=== PATIENT | female | born 2000 | race Caucasian/White ===

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

== ENCOUNTER 2021-11-22 12:42 | Emergency (ER) | payer SELFPAY ==
[2021-11-23 09:35] LABS: SARS-CoV-2 PCR by NAA DETECTED (NotDetected)
== END 2021-11-22 13:12 | disposition home or self-care (01) ==
LOC: MADERS 12:42
DX: U07.1 COVID-19 (principal); F17.210 Nicotine dependence, cigarettes, uncomplicated
CPT/HCPCS: 99283; U0003; U0005

== ENCOUNTER 2022-09-16 03:28 | Emergency (ER) | payer SELFPAY ==
[2022-09-16 03:46] LABS: #Basophils 0.1 thou/uL (0.0-0.2); #Eosinphils 0.7 thou/uL (0.0-0.7); #Lymphocytes 2.6 thou/uL (1.20-3.40); #Monocytes 0.6 thou/uL (0.11-0.59); #Neutrophils 7.9 thou/uL (1.40-6.50); %Eosinophils 5.7 % (0.0-10.0); %Lymphocytes 21.7 % (21.0-51.0); %Monocytes 4.9 % (0.0-10.0); %Neutrophils 66.7 % (42.0-75.0); Hemoglobin 12.8 g/dL (12.0-16.0); Mean Corpuscular HGB CONC 35.5 g/dL (32.0-36.0); Mean Corpuscular Hemoglobin 31.1 pg (27.0-31.0); Mean Corpuscular Volume 87.7 fl (78.0-98.0); Mean Platelet Volume 6.1 fL (7.4-10.4); Platelet Count 409 thou/uL (130-400); RBC Distribution Width 11.6 % (11.5-14.5); White Blood Cell (WBC) Count 11.8 thou/uL (4.8-10.8)
[2022-09-16 03:56] LABS: Bilirubin Negative (Negative); Blood, Urine Small (Negative); Clarity Clear (Clear); Glucose, Urine (Dipstick) Negative (Negative); Ketone, Urine Negative (Negative); Leukocyte Negative (Negative); Nitrite Negative (Negative); Protein, Urine (Dipstick) Negative (Neg-Trace); Urobilinogen 0.2 mg/dL (Less than 2); pH, Urine 6.5 (5.0-9.0)
[2022-09-16 03:59] LABS: BHCG - Serum Negative (NEGATIVE); Pregs Control Background? CLEAR/WHITE (CLR/WHITE); Pregs Control Bar Appear? YES (CONTROL BAR)
[2022-09-16 04:01] LABS: RBC/HPF 0-3 HPF (0-3); WBC/HPF 0-3 HPF (0-3)
[2022-09-16 04:05] LABS: CO2 Tension (PvCO2) 32.3 mmHg (42.0-51.0); Calcium, Ionized 1.03 mmol/L (1.15-1.33); Chloride 112 mmol/L (98-107); Hemoglobin - Calc 12.9 g/dL (12.0-16.0); Potassium 3.8 mmol/L (3.5-5.1); Sodium 145 mmol/L (138-145); vO2 Saturation-calc 92.1 % (60.0-85.0)
[2022-09-16 04:06] LABS: ALT (SGPT) 12 U/L (8-55); AST (SGOT) 15 U/L (5-34); Alkaline Phosphatase 54 U/L (40-110); Anion Gap 14 mmol/L (10-20); BUN (Urea Nitrogen) 5 mg/dL (7.0-18.7); Bilirubin, Total Less than 0.2 mg/dL (0.2-1.2); Calc. Creatinine Clearance 0 mL/min (70-130); Calcium 8.2 mg/dL (7.8-10.44); Carbon Dioxide 20 mmol/L (22-29); Chloride 112 mmol/L (98-107); Estimated GFR 119; Globulin 2.4 g/dL (2.4-3.5); Glucose 88 mg/dL (70-105); Magnesium 1.8 mg/dL (1.6-2.6); Potassium 3.8 mmol/L (3.5-5.1); Protein, Total 6.4 g/dL (6.0-8.3); Sodium 142 mmol/L (136-145)
[2022-09-16 04:06] LABS: Amphetamine Not Detected (NotDetected); Barbiturates Screen Not Detected (NotDetected); Benzodiazepine Screen Not Detected (NotDetected); Cocaine Metabolite Screen Not Detected (NotDetected); Medtox Control Line Valid? VALID (VALID); Methadone Not Detected (NotDetected); Methamphetamine Not Detected (NotDetected); Opiate Screen Not Detected (NotDetected); Oxycodone Screen Not Detected (NotDetected); Phencyclidine (PCP) Not Detected (NotDetected); THC/Cannabinoid Screen Detected (NotDetected); Tricyclic Screen Not Detected (NotDetected)
[2022-09-16 04:08] LABS: Acetaminophen Less than 10.0 mcg/mL (10.0-30.0); Alcohol 140 mg/dL (Less than 10); Salicylate Less than 8.0 mg/dL (15.0-30.0)
[2022-09-16] MEDS ORDERED: Magnesium 2 GM/50 ML BAG (IN WATER) ONE (05:04)
[2022-09-16] MEDS ORDERED: NS 0.9% w/ 40 MEQ KCL 1,000 ML IV ONE (05:42)
[2022-09-16 07:53] LABS: Base Excess-Venous -3.4 mmol/L (-2.0 to 3.0); Bicarbonate (HCO3v) 23.2 mmol/L (22.0-28.0); CO2 Tension (PvCO2) 46.8 mmHg (42.0-51.0); Calcium, Ionized 1.08 mmol/L (1.15-1.33); Chloride 117 mmol/L (98-107); Hemoglobin - Calc 12.7 g/dL (12.0-16.0); Potassium 4.6 mmol/L (3.5-5.1); Sodium 149 mmol/L (138-145); T. Carbon Dioxide 24.6 mmol/L (22.0-28.0)
[2022-09-16 12:18] LABS: Carbamazepine-Tegretol 3.3 ug/mL (4.0-12.0)
== END 2022-09-16 12:30 | disposition home or self-care (01) ==
LOC: MADERS 03:28
DX: F10.129 Alcohol abuse with intoxication, unspecified (principal); E86.0 Dehydration; F12.929 Cannabis use, unspecified with intoxication, unspecified; J45.909 Unspecified asthma, uncomplicated; F17.210 Nicotine dependence, cigarettes, uncomplicated; Y90.6 Blood alcohol level of 120-199 mg/100 ml; Z79.899 Other long term (current) drug therapy
CPT/HCPCS: 70450; 80053; 80156; 80164; 80178; 80306; 80307; 81003; 81015; 82140; 82330; 82435; 82550; 82803; 83605; 83690; 83735; 84132; 84295; 84703; 85014; 85025; 93005; 96361; 96365; 96366; 96367; J3475; J3480

== ENCOUNTER 2022-10-25 12:19 | Emergency (ER) | payer SELFPAY ==
[2022-10-25 13:16] LABS: Bilirubin Negative (Negative); Blood, Urine Moderate (Negative); Clarity Clear (Clear); Glucose, Urine (Dipstick) Negative (Negative); Ketone, Urine Negative (Negative); Leukocyte Negative (Negative); Nitrite Negative (Negative); Protein, Urine (Dipstick) Negative (Neg-Trace); Specific Gravity, Urine 1.025 (1.005-1.030); Urobilinogen 0.2 mg/dL (Less than 2); pH, Urine 6.5 (5.0-9.0)
[2022-10-25 13:18] LABS: Pregnancy Test - Urine (BHCG) POSITIVE (Negative); Pregu Control Background? CLEAR/WHITE (CLR/WHITE); Pregu Control Bar Appear? YES (CONTROL BAR); Specific Gravity 1.025 (1.002-1.036)
[2022-10-25 13:23] LABS: Bacteria/HPF 2+ HPF (None Seen); WBC/HPF 0-3 HPF (0-3)
[2022-10-25 13:56] LABS: #Basophils 0.1 thou/uL (0.0-0.2); #Eosinphils 0.3 thou/uL (0.0-0.7); #Lymphocytes 2.3 thou/uL (1.20-3.40); #Monocytes 0.4 thou/uL (0.11-0.59); %Eosinophils 3.7 % (0.0-10.0); %Lymphocytes 28.6 % (21.0-51.0); %Monocytes 5.2 % (0.0-10.0); %Neutrophils 61.6 % (42.0-75.0); Mean Corpuscular HGB CONC 33.9 g/dL (32.0-36.0); Mean Corpuscular Hemoglobin 29.6 pg (27.0-31.0); Mean Corpuscular Volume 87.4 fl (78.0-98.0); Mean Platelet Volume 6.8 fL (7.4-10.4); Platelet Count 341 10x3/uL (130-400); RBC Distribution Width 11.7 % (11.5-14.5); Red Blood Cell (RBC) Count 4.74 mill/uL (4.20-5.40); White Blood Cell (WBC) Count 8.1 10x3/uL (4.8-10.8)
== END 2022-10-25 15:48 | disposition home or self-care (01) ==
LOC: MADERS 12:19
DX: O20.0 Threatened abortion (principal); O99.331 Smoking (tobacco) complicating pregnancy, first trimester; F17.210 Nicotine dependence, cigarettes, uncomplicated; Z3A.01 Less than 8 weeks gestation of pregnancy
CPT/HCPCS: 36415; 76815; 81003; 81015; 81025; 84702; 85025; 86900; 86901

== ENCOUNTER 2022-11-02 19:12 | Emergency (ER) | payer SELFPAY ==
[2022-11-02 20:10] LABS: Bilirubin Negative (Negative); Blood, Urine Negative (Negative); Clarity Slightly Cloudy (Clear); Glucose, Urine (Dipstick) Negative (Negative); Ketone, Urine Negative (Negative); Leukocyte Negative (Negative); Nitrite Negative (Negative); Protein, Urine (Dipstick) Negative (Neg-Trace); Specific Gravity, Urine 1.025 (1.005-1.030); Urobilinogen 0.2 mg/dL (Less than 2)
== END 2022-11-02 22:00 | disposition home or self-care (01) ==
LOC: MADERS 19:12
DX: O20.0 Threatened abortion (principal); O99.331 Smoking (tobacco) complicating pregnancy, first trimester; F17.210 Nicotine dependence, cigarettes, uncomplicated; Z3A.01 Less than 8 weeks gestation of pregnancy
CPT/HCPCS: 81003; 84702; 87086; 99284

== ENCOUNTER 2023-10-22 07:49 | Emergency (ER) | payer OTHER, SELFPAY ==
[2023-10-22 08:35] LABS: #Basophils 0.1 thou/uL (0.0-0.2); #Eosinphils 0.3 thou/uL (0.0-0.7); #Lymphocytes 1.4 thou/uL (1.20-3.40); #Monocytes 0.4 thou/uL (0.11-0.59); %Basophils 0.8 % (0.0-1.0); %Eosinophils 2.7 % (0.0-10.0); %Lymphocytes 14.1 % (21.0-51.0); %Monocytes 3.4 % (0.0-10.0); Hematocrit 42.8 % (36.0-47.0); Hemoglobin 13.4 g/dL (12.0-16.0); Mean Corpuscular HGB CONC 31.2 g/dL (32.0-36.0); Mean Corpuscular Hemoglobin 25.6 pg (27.0-31.0); Mean Corpuscular Volume 82.2 fl (78.0-98.0); Mean Platelet Volume 7.3 fL (7.4-10.4); Platelet Count 378 10x3/uL (130-400); Red Blood Cell (RBC) Count 5.21 mill/uL (4.20-5.40); White Blood Cell (WBC) Count 10.1 10x3/uL (4.8-10.8)
[2023-10-22 08:48] LABS: Anion Gap 18 mmol/L (10-20); BUN (Urea Nitrogen) 12 mg/dL (7.0-18.7); Calc. Creatinine Clearance 0 mL/min (70-130); Calcium 8.9 mg/dL (7.8-10.44); Carbon Dioxide 17 mmol/L (22-29); Chloride 109 mmol/L (98-107); Estimated GFR 109; Glucose 114 mg/dL (70-105); Potassium 3.7 mmol/L (3.5-5.1); Sodium 140 mmol/L (136-145)
== END 2023-10-22 09:21 | disposition home or self-care (01) ==
LOC: MADERS 07:49
DX: J44.1 Chronic obstructive pulmonary disease with (acute) exacerbation (principal); F17.210 Nicotine dependence, cigarettes, uncomplicated
CPT/HCPCS: 36415; 71046; 80048; 85025; 87804

== ENCOUNTER 2024-06-12 12:21 | Emergency (ER) | payer OTHER ==
[2024-06-12] MEDS ORDERED: Ipratropium/Albuterol 3 ML NEB ONE ×2 (12:45→14:37)
[2024-06-12] MEDS ORDERED: methylPREDNISolone Sod Succ/PF 125 MG/2 ML VIAL ONE (12:45)
[2024-06-12] MEDS ORDERED: Benzonatate 100 MG CAP ONE (13:12)
[2024-06-12 13:24] LABS: ALT (SGPT) 19 U/L (8-55); AST (SGOT) 15 U/L (5-34); Albumin 4.3 g/dL (3.5-5.0); Alkaline Phosphatase 91 U/L (40-110); Anion Gap 15 mmol/L (10-20); BUN (Urea Nitrogen) 8 mg/dL (7.0-18.7); Bilirubin, Total 0.9 mg/dL (0.2-1.2); Calc. Creatinine Clearance 0 mL/min (70-130); Calcium 9.3 mg/dL (7.8-10.44); Carbon Dioxide 19 mmol/L (22-29); Chloride 108 mmol/L (98-107); Estimated GFR 108; Glucose 77 mg/dL (70-105); Potassium 3.8 mmol/L (3.5-5.1); Protein, Total 7.3 g/dL (6.0-8.3); Sodium 138 mmol/L (136-145)
[2024-06-12 13:27] LABS: Band 6 % (5-11); Hematocrit 46.5 % (36.0-47.0); Hemoglobin 14.5 g/dL (12.0-16.0); Hypochromia SLIGHT = 6-15 cells (100X) (0-5/hpf); Lymphocytes 17 % (21-51); MDiff Complete? YES; Mean Corpuscular HGB CONC 31.3 g/dL (32.0-36.0); Mean Corpuscular Hemoglobin 27.1 pg (27.0-31.0); Mean Corpuscular Volume 86.5 fl (78.0-98.0); Mean Platelet Volume 6.3 fL (7.4-10.4); Monocytes 5 % (0-10); Neutrophil 72 % (42-75); Platelet Adequacy Comment Appears Increased; Platelet Count 414 10x3/uL (130-400); RBC Distribution Width 13.4 % (11.5-14.5); Red Blood Cell (RBC) Count 5.37 mill/uL (4.20-5.40); White Blood Cell (WBC) Count 15.7 10x3/uL (4.8-10.8)
[2024-06-12 13:59] LABS: Influenza A by NAA Not Detected (NotDetected); Influenza B by NAA Not Detected (NotDetected); SARS-CoV-2 NAA Rapid Test Not Detected (NotDetected)
[2024-06-12] MEDS ORDERED: Sodium Chloride 0.9% 100 ML ONE (14:37)
[2024-06-12] MEDS ORDERED: cefTRIAXone (ROCEPHIN) 2 GM VIAL ONE (14:37)
== END 2024-06-12 15:21 | disposition home or self-care (01) ==
LOC: MADERS 12:21
DX: J42 Unspecified chronic bronchitis (principal); F17.210 Nicotine dependence, cigarettes, uncomplicated; R03.0 Elevated blood-pressure reading, without diagnosis of hypertension
CPT/HCPCS: 71046; 80053; 83605; 85025; 87040; 94640; 94760; 96365; 96375; J0696; J2930; J7620